=== PATIENT | female | born 1950 | race Hispanic/Latino ===

== ENCOUNTER 2018-02-14 07:10 | Day surgery (SDC) | payer MEDICARE ==
[2018-02-06 07:57] VITALS: BMI 25.2
[2018-02-14] MEDS ORDERED: Propofol 10 mg/ml Inj (20 ML) ONE (08:41)
[2018-02-14] MEDS ORDERED: Sodium Chloride 0.9% 1,000 ML IV SCH (09:15)
[2018-02-14 10:08] VITALS: BP 126/67; PULSE 70; RESP 14; TEMP 98.1; O2SAT 100
== END 2018-02-14 10:52 | disposition home or self-care (01) ==
LOC: ENDO 07:10
PROVIDERS: ATTEND Internal Medicine
DX: K63.5 Polyp of colon (principal); K64.8 Other hemorrhoids; I10 Essential (primary) hypertension
CPT/HCPCS: 45385; 88305; J2704; J7040 ×2